=== PATIENT | female | born 1985 | race Caucasian/White ===

== ENCOUNTER 2017-03-22 18:51 | Emergency (ER) | payer BC ==
--- NOTE | 2017-03-22 20:13 | EDM.PDOC ---
ED HPI GENERAL MEDICAL PROBLEM - General Chief Complaint: WARP STARTER Problem Stated Complaint: POSSIBLE TUBAL /ABOUT 8 WEEKS Time Seen by Provider: 03/22/17 20:02 - History of Present Illness INITIAL COMMENTS - FREE TEXT/NARRATIVE: HISTORY AND PHYSICAL: History of present illness: The patient is a 32-year-old female with history of ovarian cysts PCOS whose LMP was 01/10 and she is a zero with concerns that she is ; the patient works here and lives in [place] and has a health sciences manager there she has not seen anyone yet for this . She presents today with some lower abdominal cramping and a small area of spotting on her underwear earlier today not requiring any pads. She has had no fever chills nausea vomiting or upper abdominal pain and no flank pain or urinary complaints. The patient does not have a history of PID but has had a laparoscopy in the past for her PCOS. She tells me that she thought that on the laparoscopy her doctor said that she had a lot of scar tissue and she was concerned that was a risk factor for atopic.. Patient says the pain is bilateral and pelvic does not localize right or left. Patient states that prior to these events today she did not have any spotting or cramping. Patient also complained to nursing of some swelling on her legs but she sustained a sunburn this weekend. Review of systems: As per history of present illness and below otherwise all systems reviewed and negative. Past medical history: As per history of present illness and as reviewed below otherwise noncontributory. Surgical history: As per history of present illness and as reviewed below otherwise noncontributory. Social history: No reported history of drug or alcohol abuse. Family history: As per history of present illness and as reviewed below otherwise noncontributory. Physical exam: General: Well-developed well-nourished female who is nontoxic and vital signs have been reviewed by me. Patient has visible sunburn with peeling on her face and other exposed areas. Skin: On the lower extremities there is erythema and some blistering seen anterior thighs and anterior tibs bilaterally which is consistent with sunburn and blistering. There is some trace edema dependently as a result of this but no calf swelling or tenderness. On the face and other exposed areas of the neck and upper extremities there is some peeling and residual sunburn areas of seen. Normal turgor no rashes HEENT: Atraumatic, normocephalic, negative for conjunctival pallor or scleral icterus, mucous membranes moist, throat clear, neck supple, nontender, trachea midline. Lungs: Clear to auscultation, breath sounds equal bilaterally, chest nontender. Heart: S1S2, regular, negative for clicks, rubs, or JVD. Abdomen: Soft, nondistended, nontender. Negative for masses or hepatosplenomegaly. Negative for costovertebral tenderness. Pelvis: Stable nontender. Genitourinary: Deferred. Rectal: Deferred. Extremities: Atraumatic, negative for cords or calf pain. Neurovascular unremarkable. Neuro: Awake, alert, oriented. Cranial nerves II through XII unremarkable. Cerebellum unremarkable. Motor and sensory unremarkable throughout. Exam nonfocal. Diagnostics: CBC serum quantitative hCG UA urine culture indicated ABO Rh pelvic ultrasound Therapeutics: [] Discussed with the patient that testing results indicate that she is not currently and she can follow up with her PRE KINDERGARTEN TEACHER at home or one of our doctors Impression: Pelvic pain stable Definitive disposition and diagnosis as appropriate pending reevaluation and review of above. abdominal cramps Pain Score (Numeric/FACES): 5 - Related Data Allergies Allergy/AdvReac Type Severity Reaction Status Date / Time mushroom Allergy Rash Verified 03/22/17 19:31 Home Meds: Home Meds Hydrocodone/Acetaminophen [[place] 5-325 Tablet] 1 each PO ASDIRECTED 03/22/17 [ History] Phentermine HCl 30 mg PO DAILY 03/22/17 [History] Topiramate [Topamax] 100 mg PO DAILY 03/22/17 [History] Zolpidem [Ambien] 5 mg PO BEDTIME 03/22/17 [History] Past Medical History HEENT History: Reports: None Cardiovascular History: Reports: None Respiratory History: Reports: None Gastrointestinal History: Reports: None Genitourinary History: Reports: None WARP STARTER History: Reports: Other (see below) Other OB/BYN History: PCOS Musculoskeletal History: Reports: None Neurological History: Reports: None Psychiatric History: Reports: None Endocrine/Metabolic History: Reports: None Hematologic History: Reports: None Dermatologic History: Reports: None - Infectious Disease History Infectious Disease History: Reports: None - Past Surgical History HEENT Surgical History: Reports: Adenoidectomy, Other (see below) Other HEENT Surgeries/Procedures: bilateral tube to ears, wisdom tooth removal Social & Family History - Family History Family Medical History: Noncontributory - Tobacco Use Smoking Status *Q: Never Smoker - Caffeine Use Caffeine Use: Reports: Coffee, Tea - Recreational Drug Use Recreational Drug Use: No ED ROS GENERAL - Review of Systems Review Of Systems: ROS reveals no pertinent complaints other than HPI. ED EXAM, GENERAL - Physical Exam Exam: See Below (See dictation) Course - Vital Signs Last Recorded V/S: Last Vital Signs Temp 36.8 C 03/22/17 19:34 Pulse 93 03/22/17 19:34 Resp 16 03/22/17 19:34 BP 126/73 03/22/17 19:34 Pulse Ox 98 03/22/17 19:34 - Orders/Labs/Meds Orders: Active Orders 24 hr Category Date Time Status OB 1st Tri Sgl 1st Gest [US] Stat Exams 03/22/17 20:07 Taken Labs: Laboratory Tests 03/22/17 03/22/17 03/22/17 Range/Units 20:10 20:22 20:22 WBC 11.39 H (4.0-11.0) K/uL RBC 4.49 (4.30-5.90) M/uL Hgb 13.4 (12.0-16.0) g/dL Hct 40.0 (36.0-46.0) % MCV 89.1 (80.0-98.0) fL MCH 29.8 (27.0-32.0) pg MCHC 33.5 (31.0-37.0) g/dL RDW Std Deviation 44.7 (28.0-62.0) fl RDW Coeff of Malini 14 (11.0-15.0) % Plt Count 320 (150-400) K/uL MPV 9.40 (7.40-12.00) fL Neut % (Auto) 61.7 (48.0-80.0) % Lymph % (Auto) 30.3 (16.0-40.0) % [place] % (Auto) 5.6 (0.0-15.0) % Eos % (Auto) 1.9 (0.0-7.0) % Baso % (Auto) 0.5 (0.0-1.5) % Neut # (Auto) 7.0 H (1.4-5.7) K/uL Lymph # (Auto) 3.5 H (0.6-2.4) K/uL [place] # (Auto) 0.6 (0.0-0.8) K/uL Eos # (Auto) 0.2 (0.0-0.7) K/uL Baso # (Auto) 0.1 (0.0-0.1) K/uL Nucleated RBC % 0.0 /100WBC Nucleated RBCs # 0 K/uL HCG, Quant < 1.2 mIU/mL Urine Color YELLOW Urine Appearance SLT CLOUDY Urine pH 6.0 (5.0-8.0) Ur Specific [place] 1.020 (1.001-1.035) Urine Protein NEGATIVE (NEGATIVE) mg/dL Urine Glucose (UA) NEGATIVE (NEGATIVE) mg/dL Urine Ketones NEGATIVE (NEGATIVE) mg/dL Urine Occult Blood LARGE H (NEGATIVE) Urine Nitrite NEGATIVE (NEGATIVE) Urine Bilirubin NEGATIVE (NEGATIVE) Urine Urobilinogen 0.2 (<2.0) EU/dL Ur Leukocyte Esterase NEGATIVE (NEGATIVE) Urine RBC 2-4 (0-2/HPF) Urine WBC 0-1 (0-5/HPF) Ur Epithelial Cells FEW (NONE-FEW) Urine Bacteria FEW (NEGATIVE) Blood Type 03/22/17 Range/Units 20:22 WBC (4.0-11.0) K/uL RBC (4.30-5.90) M/uL Hgb (12.0-16.0) g/dL Hct (36.0-46.0) % MCV (80.0-98.0) fL MCH (27.0-32.0) pg MCHC (31.0-37.0) g/dL RDW Std Deviation (28.0-62.0) fl RDW Coeff of Malini (11.0-15.0) % Plt Count (150-400) K/uL MPV (7.40-12.00) fL Neut % (Auto) (48.0-80.0) % Lymph % (Auto) (16.0-40.0) % [place] % (Auto) (0.0-15.0) % Eos % (Auto) (0.0-7.0) % Baso % (Auto) (0.0-1.5) % Neut # (Auto) (1.4-5.7) K/uL Lymph # (Auto) (0.6-2.4) K/uL [place] # (Auto) (0.0-0.8) K/uL Eos # (Auto) (0.0-0.7) K/uL Baso # (Auto) (0.0-0.1) K/uL Nucleated RBC % /100WBC Nucleated RBCs # K/uL HCG, Quant mIU/mL Urine Color Urine Appearance Urine pH (5.0-8.0) Ur Specific [place] (1.001-1.035) Urine Protein (NEGATIVE) mg/dL Urine Glucose (UA) (NEGATIVE) mg/dL Urine Ketones (NEGATIVE) mg/dL Urine Occult Blood (NEGATIVE) Urine Nitrite (NEGATIVE) Urine Bilirubin (NEGATIVE) Urine Urobilinogen (<2.0) EU/dL Ur Leukocyte Esterase (NEGATIVE) Urine RBC (0-2/HPF) Urine WBC (0-5/HPF) Ur Epithelial Cells (NONE-FEW) Urine Bacteria (NEGATIVE) Blood Type O NEGATIVE Departure - Departure Time of Disposition: 21:50 Disposition: Home, Self-Care 01 Condition: good Clinical Impression: Pelvic pain - Discharge Information Forms: ED Department Discharge Additional Instructions: The following information is given to patients seen in the emergency department who are being discharged to home. This information is to outline your options for follow-up care. We provide all patients seen in our emergency department with a follow-up referral. The need for follow-up, as well as the timing and circumstances, are variable depending upon the specifics of your emergency department visit. If you don't have a primary care physician on staff, we will provide you with a referral. We always advise you to contact your personal physician following an emergency department visit to inform them of the circumstance of the visit and for follow-up with them and/or the need for any referrals to a consulting specialist. The emergency department will also refer you to a specialist when appropriate. This referral assures that you have the opportunity for followup care with a specialist. All of these measure are taken in an effort to provide you with optimal care, which includes your followup. Under all circumstances we always encourage you to contact your private physician who remains a resource for coordinating your care. When calling for followup care, please make the office aware that this follow-up is from your recent emergency room visit. If for any reason you are refused follow-up, please contact the [facility] emergency department at and ask to speak to the emergency department charge nurse. [facility] Primary care- Internal Medicine and Family [facility] [address] [place], [place] [id number] [facility] Primary care-Women's Health [address] [address] Please followup with the health sciences manager that you have at home are one hours or one of our primary care physicians for further care and evaluation. As you have not had a menstrual cycle since December it is important for this followup. Return to ER as needed and as discussed - My Orders Last 24 Hours: My Active Orders 03/22/17 20:07 OB 1st Tri Sgl 1st Gest [US] Stat - Assessment/Plan Last 24 Hours: My Active Orders 03/22/17 20:07 OB 1st Tri Sgl 1st Gest [US] Stat
[2017-03-23 00:07] VITALS: BP 115/80
--- NOTE | 2017-03-23 15:59 | US ---
EXAM DATE: 03/22/17 PATIENT'S AGE: 32 Patient: DULCE SUMMERS Facility: [place], [place] Site . Site : 1985 Study: US Pelvis [id number]/9/2017 9:05:18 PM Ordering Physician: Skip Jesus Final Report: INDICATION: Rule out ectopic . No menses for 3 months. No additional clinical signs or symptoms. LMP 01/10/2017. TECHNIQUE: Ultrasound pelvis all with transvaginal imaging only for better assessment or to better visualize the endometrium. Real-time sonographic images with spectral and color Doppler imaging of the ovaries were obtained. COMPARISON: None. FINDINGS: Uterus: 6.4 x 3.5 x 4.3 cm. Normal echotexture of the myometrium. No masses. Retroverted position. Endometrium: Transvaginal imaging was performed to better evaluate the endometrium. Normal endometrial thickness, measuring 5.6 mm in thickness. No sign of endometrial mass or fluid. No intrauterine gestation identified. Right ovary: 3.8 x 1.7 x 2.1 cm. No ovarian or adnexal masses. Normal arterial and venous blood flow. Left ovary: 3.3 x 1.9 x 2.8 cm. No ovarian or adnexal masses. Normal arterial and venous blood flow. Cul-de-sac: No significant free fluid. IMPRESSION: 1. Negative pelvic ultrasound. No intrauterine gestation or imaging evidence of ectopic . No free pelvic fluid. Correlate with testing. Dictated by Feroz Velásquez MD @ 03/22/2017 9:30:38 PM Dictated by: Feroz Velásquez MD @ 03/22/2017 21:30:44 (Electronic Signature) Report Signed by Proxy. [facility] CENTER[facility]umana
== END 2017-03-22 21:56 | disposition home or self-care (01) ==
LOC: MW.ED 18:51
DX: R10.2 Pelvic and perineal pain (principal); Z98.890 Other specified postprocedural states; Z79.899 Other long term (current) drug therapy
CPT/HCPCS: 36415; 76801; 76801-26; 81001; 84702; 85025; 86900; 86901; 99282; 99284-25

== ENCOUNTER 2017-04-17 23:19 | Emergency (ER) | payer BC ==
--- NOTE | 2017-04-17 23:42 | EDM.PDOC ---
ED HPI GENERAL MEDICAL PROBLEM - General Chief Complaint: Abdominal Pain Stated Complaint: ABDOMINAL PAIN Time Seen by Provider: 04/17/17 23:39 - History of Present Illness INITIAL COMMENTS - FREE TEXT/NARRATIVE: HISTORY AND PHYSICAL: History of present illness: Patient is a 32-year-old white female history of ruptured ovarian cyst one month prior persistent concern of similar lower abdominal pain and concern for possible recurrence she denies nausea vomiting fever chills or other concern. Review of systems: As per history of present illness and below otherwise all systems reviewed and negative. Past medical history: As per history of present illness and as reviewed below otherwise noncontributory. Surgical history: As per history of present illness and as reviewed below otherwise noncontributory. Social history: No reported history of drug or alcohol abuse. Family history: As per history of present illness and as reviewed below otherwise noncontributory. Physical exam: HEENT: Atraumatic, normocephalic, pupils reactive, negative for conjunctival pallor or scleral icterus, mucous membranes moist, throat clear, neck supple, nontender, trachea midline. Lungs: Clear to auscultation, breath sounds equal bilaterally, chest nontender. Heart: S1S2, regular, negative for clicks, rubs, or JVD. Abdomen: Soft, nondistended, no localized tenderness. Negative for masses or hepatosplenomegaly. Negative for costovertebral tenderness. Pelvis: Stable nontender. Genitourinary: Deferred. Rectal: Deferred. Extremities: Atraumatic, negative for cords or calf pain. Neurovascular unremarkable. Neuro: Awake, alert, oriented. Cranial nerves II through XII unremarkable. Cerebellum unremarkable. Motor and sensory unremarkable throughout. Exam nonfocal. Diagnostics: CBC CMP UA hCG pelvic ultrasound Therapeutics: None Impression: #1 lower abdominal history of ovarian cyst Definitive disposition and diagnosis as appropriate pending reevaluation and review of above. Lower Abdomen Pain Score (Numeric/FACES): 7 - Related Data Allergies Allergy/AdvReac Type Severity Reaction Status Date / Time mushroom Allergy Rash Verified 04/17/17 23:23 Home Meds: Home Meds Phentermine HCl 37.5 mg PO DAILY 03/22/17 [History] Zolpidem [Ambien] 10 mg PO BEDTIME 03/22/17 [History] Acetaminophen/Codeine [Tylenol with Codeine No.3 300MG/30MG] 1 tab PO Q8HR PRN 04/17/17 [History] Montelukast Sodium 10 mg PO BEDTIME 04/17/17 [History] Rizatriptan Benzoate [Rizatriptan] 10 mg PO DAILY PRN 04/17/17 [History] Spironolactone [Aldactone] 100 mg PO BID 04/17/17 [History] Past Medical History HEENT History: Reports: None Cardiovascular History: Reports: None Respiratory History: Reports: None Gastrointestinal History: Reports: None Genitourinary History: Reports: None CARDIOVASCULAR LAB 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: Other (See Below) Other OB/BYN History: ovarian cyst Musculoskeletal History: Reports: None Neurological History: Reports: None Psychiatric History: Reports: None Endocrine/Metabolic History: Reports: None Hematologic History: Reports: None Immunologic History: Reports: None Oncologic (Cancer) History: Reports: None Dermatologic History: Reports: None - Infectious Disease History Infectious Disease History: Reports: None - Past Surgical History Head Surgeries/Procedures: Reports: None HEENT Surgical History: Reports: Adenoidectomy, Other (See Below) Cardiovascular Surgical History: Reports: None GI Surgical History: Reports: None Female Surgical History: Reports: None Endocrine Surgical History: Reports: None Musculoskeletal Surgical History: Reports: None Social & Family History - Family History Family Medical History: Noncontributory - Tobacco Use Smoking Status *Q: Never Smoker - Caffeine Use Caffeine Use: Reports: Coffee - Recreational Drug Use Recreational Drug Use: No ED ROS GENERAL - Review of Systems Review Of Systems: ROS reveals no pertinent complaints other than HPI. ED EXAM, GENERAL - Physical Exam Exam: See Below (See dictation) Course - Vital Signs Last Recorded V/S: Last Vital Signs Temp 36.4 C 04/17/17 23:24 Pulse 77 04/17/17 23:24 Resp 18 04/17/17 23:24 BP 118/78 04/17/17 23:24 Pulse Ox 98 04/17/17 23:24 - Orders/Labs/Meds Orders: Active Orders 24 hr Category Date Time Status Pelvis Non OB Ltd [US] Stat Exams 04/17/17 23:31 Taken Labs: Laboratory Tests 04/17/17 04/17/17 04/17/17 Range/Units 23:37 23:37 23:37 WBC 10.55 (4.0-11.0) K/uL RBC 4.35 (4.30-5.90) M/uL Hgb 13.1 (12.0-16.0) g/dL Hct 38.0 (36.0-46.0) % MCV 87.4 (80.0-98.0) fL MCH 30.1 (27.0-32.0) pg MCHC 34.5 (31.0-37.0) g/dL RDW Std Deviation 41.9 (28.0-62.0) fl RDW Coeff of Malini 13 (11.0-15.0) % Plt Count 265 (150-400) K/uL MPV 9.30 (7.40-12.00) fL Neut % (Auto) 58.9 (48.0-80.0) % Lymph % (Auto) 34.7 (16.0-40.0) % [place] % (Auto) 4.3 (0.0-15.0) % Eos % (Auto) 1.7 (0.0-7.0) % Baso % (Auto) 0.4 (0.0-1.5) % Neut # (Auto) 6.2 H (1.4-5.7) K/uL Lymph # (Auto) 3.7 H (0.6-2.4) K/uL [place] # (Auto) 0.5 (0.0-0.8) K/uL Eos # (Auto) 0.2 (0.0-0.7) K/uL Baso # (Auto) 0.0 (0.0-0.1) K/uL Nucleated RBC % 0.0 /100WBC Nucleated RBCs # 0 K/uL Sodium 141 (136-146) mmol/L Potassium 3.9 (3.5-5.1) mmol/L Chloride 113 H (98-110) mmol/L Carbon Dioxide 20 L (21-31) mmol/L BUN 16 (6.0-23.0) mg/dL Creatinine 0.9 (0.6-1.5) mg/dL Est Cr Clr Drug Dosing 94.65 mL/min Estimated GFR (MDRD) > 60.0 ml/min Glucose 93 (60-110) mg/dL Calcium 8.9 (8.8-10.8) mg/dL Total Bilirubin 0.3 (0.1-1.5) mg/dL AST 18 (5-40) IU/L ALT 19 (8-54) IU/L Alkaline Phosphatase 61 (40-150) Total Protein 6.6 (6.0-8.0) g/dL Albumin 4.2 (3.5-5.0) g/dL Globulin 2.4 (2.0-3.5) g/dL Albumin/Globulin Ratio 1.8 (1.3-2.8) HCG, Qual NEGATIVE (NEG) Departure - Departure Time of Disposition: 00:59 Disposition: Home, Self-Care 01 Condition: good Clinical Impression: Ovarian cyst - Discharge Information Forms: ED Department Discharge Additional Instructions: The following information is given to patients seen in the emergency department who are being discharged to home. This information is to outline your options for follow-up care. We provide all patients seen in our emergency department with a follow-up referral. The need for follow-up, as well as the timing and circumstances, are variable depending upon the specifics of your emergency department visit. If you don't have a primary care physician on staff, we will provide you with a referral. We always advise you to contact your personal physician following an emergency department visit to inform them of the circumstance of the visit and for follow-up with them and/or the need for any referrals to a consulting specialist. The emergency department will also refer you to a specialist when appropriate. This referral assures that you have the opportunity for followup care with a specialist. All of these measure are taken in an effort to provide you with optimal care, which includes your followup. Under all circumstances we always encourage you to contact your private physician who remains a resource for coordinating your care. When calling for followup care, please make the office aware that this follow-up is from your recent emergency room visit. If for any reason you are refused follow-up, please contact the [facility] emergency department at and asked to speak to the emergency department charge nurse. Medications as directed followup CARDIOVASCULAR LAB DIRECTOR call for appointment return as needed as discussed - My Orders Last 24 Hours: My Active Orders 04/17/17 23:31 Pelvis Non OB Ltd [US] Stat - Assessment/Plan Last 24 Hours: My Active Orders 04/17/17 23:31 Pelvis Non OB Ltd [US] Stat
[2017-04-18 00:02] LABS: CHLORIDE,CL 113 mmol/L (98-110); SODIUM,NA 141 mmol/L (136-146)
[2017-04-18 01:24] VITALS: BP 116/62
--- NOTE | 2017-04-18 15:34 | US ---
EXAM DATE: 04/17/17 PATIENT'S AGE: 32 Patient: DULCE SUMMERS Facility: [place], [place] Site . Site : 1985 Study: US Pelvis [id number]/5/[id number] 12:29:44 AM Ordering Physician: Doctor Hill Final Report: INDICATION: Vaginal bleeding/ spotting for 1 month. Cramping. TECHNIQUE: Ultrasound pelvis transvaginal for better assessment or to better visualize the endometrium. Real-time sonographic images with spectral and color Doppler imaging of the ovaries were obtained. COMPARISON: 03/22/2017. FINDINGS: The uterus is 5.3 x 3.1 x 4.8 cm. No discrete uterine mass. The endometrial stripe is 4 mm. No evidence of endometrial mass or fluid. No evidence of intrauterine . Right ovary is 3.6 x 1.6 x 2.4 cm and contains several follicles. Normal appearing color Doppler flow in the right ovary. Left ovary is 3.9 x 3.9 x 3.8 cm. A simple appearing cyst in the left ovary measures 3.5 cm. Normal-appearing color Doppler flow in the left ovary. No free fluid. IMPRESSION: 3.5 cm simple cyst in the left ovary. Otherwise unremarkable pelvic ultrasound. Dictated by Ollie Fatima MD @ 04/18/2017 1:07:52 AM Dictated by: Ollie Fatima MD @ 04/18/2017 01:08:02 (Electronic Signature) Report Signed by Proxy. [facility]
== END 2017-04-18 01:21 | disposition home or self-care (01) ==
LOC: MW.ED 23:19
DX: N83.202 Unspecified ovarian cyst, left side (principal); Z79.899 Other long term (current) drug therapy; Z91.018 Allergy to other foods; Z98.890 Other specified postprocedural states
CPT/HCPCS: 36415; 76857; 76857-26; 80053; 84703; 85025; 99283; 99284-25